=== PATIENT | female | born 1960 | race Caucasian/White ===

== ENCOUNTER → 2020-08-23 11:42 | Outpatient (BNVA) | payer BC, SELFPAY | PROVIDERS: Family Provider Family Medicine; Referring Provider Registered Nurse; Visit Provider Specialist | DX: M25.512 Pain in left shoulder (principal) | CPT/HCPCS: 73030 ==

== ENCOUNTER 2020-09-01 11:43 | Outpatient (CLI) | payer BC, SELFPAY ==
[2020-09-01] MEDS: iohexol 300 mg/mL 50 mL Btl INTRA-ARTI (13:32)
--- NOTE | 2020-09-01 14:00 | CT_ITS ---
WS: [id number] CT LEFT SHOULDER ARTHROGRAM HISTORY: M25.519 - Pain in unspecified shoulder Technique: All CT scans at [facility] use at least one of these dose optimization techniq ues: automated exposure control; mA and/or kV adjustment per patient size (includes targeted exams wh ere dose is matched to clinical indication); or iterative reconstruction. DLP: 768.62 mGycm COMPARISON: None available. CT performed post LEFT shoulder joint injection. There is good distention of the shoulder joint with contrast. There is no extension of the fluid into the subacromial or subdeltoid bursa. Biceps tendon looks to be in normal position. There is good distention of the joint capsule. No contrast extending into the labrum. There is a very small amount of contrast extending along the pectoralis muscle but t his is probably due to the injection site. Mild narrowing of the glenohumeral joint. No loose bodies or fractures are identified. No significant encroachment upon the rotator cuff. CT/CT shoulder LT w con [id number] IMPRESSION: 1. No rotator cuff tear or labral abnormalities are identified. 2. Mild narrowing of the glenohumeral joint.
--- NOTE | 2020-09-01 14:00 | IR_ITS ---
WS: [id number] LEFT SHOULDER ARTHROGRAM UNDER FLUOROSCOPY. PRIOR TO CT EVALUATION. HISTORY: M25.519 - Pain in unspecified shoulder COMPARISON: 08/23/2020 radiographs. FLUOROSCOPY TIME: 0.9 minutes. Procedure, risks and complications were explained to the patient. Consent has been obtained. Under fluoroscopic guidance the skin is marked over the medial superior third of the humeral head, cl eansed with ChloraPrep and anesthetized with lidocaine. 22-gauge spinal needle is inserted to the cor janelle of the humeral head. Test injection with Omnipaque reveals the needle is appropriately positioned in the joint. Omnipaque 300 is injected under fluoroscopic guidance. Patient tolerated the joint dis tention well. No complications. IR/IR arthrogram shoulderLT [id number] IMPRESSION: Uncomplicated LEFT shoulder joint injection prior to CT evaluation.
== END 2020-09-01 11:44 | disposition home or self-care (01) ==
LOC: RADWPI 11:48
PROVIDERS: PCP Family Medicine; Visit Provider Specialist
DX: M25.512 Pain in left shoulder (principal)
CPT/HCPCS: 23350; 73201; 77002; Q9967

== ENCOUNTER → 2021-08-24 14:52 | Outpatient (BNVA) | payer BC, SELFPAY | PROVIDERS: PCP Family Medicine; Visit Provider Nurse Practitioner Family | DX: M25.561 Pain in right knee (principal); M25.461 Effusion, right knee | CPT/HCPCS: 73562 ==

== ENCOUNTER → 2022-02-28 16:13 | Outpatient (BNVA) | payer BC, SELFPAY | PROVIDERS: PCP Family Medicine; Visit Provider Nurse Practitioner Family | DX: N76.4 Abscess of vulva (principal) | CPT/HCPCS: 87070; 87077; 87184 ==

== ENCOUNTER 2022-11-29 22:43 | Observation (INO) | payer MEDICAID, SELFPAY ==
[2022-11-29 22:47] VITALS: BP 146/69; PULSE 64; RESP 18; TEMP 36.6; O2SAT 98
--- NOTE | 2022-11-29 23:07 | XRR_ITS ---
PROCEDURE INFORMATION: Exam: XR Chest Exam date and time: 11/29/2022 11:15 PM Age: 62 years old Clinical indication: Pain; Chest pressure; Additional info: Cp TECHNIQUE: Imaging protocol: Radiologic exam of the chest. Views: 1 view. COMPARISON: CT shoulder LT w con [id number] 09/01/2020 1:30 PM FINDINGS: Lungs: Moderate lung expansion. Lungs are clear. Pleural spaces: No pleural effusion. No pneumothorax. Heart/Mediastinum: Normal cardiomediastinal silhouette. Bones/joints: No acute osseous abnormality. Intraperitoneal space: Postcholecystectomy surgical clips in the right upper abdominal quadrant. XR/XR chest 1V portable [id number] IMPRESSION: No acute findings.
[2022-11-30] VITALS (13 sets, daily range): BP systolic 114–159; BP diastolic 54–89; PULSE 52–70; RESP 14–18; TEMP 36.6–36.7; O2SAT 94–99
--- NOTE | 2022-11-30 00:57 | W.ED.CHESTPA ---
HPI - Chest Pain General: Chief Complaint: Chest Pain Stated Complaint: cp Time Seen by Provider: 11/30/22 00:57 History of Present Illness: Ms. Goyal is a 62-year-old lady presenting due to chest and shoulder discomfort. Onset of symptoms at approximately 7 PM this evening at rest. Describes left shoulder pain with pain radiating to the chest and mild shortness of breath. Intensity symptoms moderate to severe. Denies frequent similar episodes in the past. No other specific changes in health, exacerbating, or alleviating factors identified. Onset (ago): hour(s) Prior episodes: No Onset: during rest Pain location: left chest Pain radiation: left shoulder and left scapula Review of Systems General: Reports: 10 or more systems reviewed and unremarkable except in HPI and below PFSH ED PFSH: Medical History Gall bladder disease Surgical History H/O hysterectomy with oophorectomy History of Family History Mother Psychiatric illness Father Stroke Social History Smoking and tobacco status: former smoker Second hand smoke exposure: No Smoking risk assessment/counseling performed?: No Alcohol intake: never Desire information about alcohol rehabilitation?: No Counseling given: No Substance/Drug Use: never Desire information about substance/drug rehabilitation?: No Counseling given: No Adopted: No Caregiver/support person: No Lives independently: Yes Household members: significant other Housing: House Marital status: / Number of children: 2 Highest education level completed: 11th Grade service: No Current occupational status: employed Physical Exam Const: COMMON NORMALS: alert GENERAL APPEARANCE: cooperative and well developed HENMT: COMMON NORMALS: normocephalic and atraumatic HEAD & SCALP: normocephalic and atraumatic Eye: COMMON NORMALS: conjunctivae normal CONJUNCTIVA: Yes conjunctivae normal SCLERA: sclerae normal Neck/C-Spine: COMMON NORMALS: supple GENERAL: Yes trachea midline Resp: COMMON NORMALS: normal respiratory effort and clear to auscultation bilaterally EFFORT & INSPECTION: Yes able to speak in complete sentences AUSCULTATION: clear to auscultation bilaterally Cardio: COMMON NORMALS: regular rate and regular rhythm RATE: regular rate RHYTHM: regular rhythm GI: COMMON NORMALS: Soft to palpation PALPATION: Yes Soft to palpation and No Tenderness to palpation present (GI) Extremity: GENERAL: Yes normal exam except as noted and No edema Neuro: COMMON NORMALS: moves all extremities SENSORIUM/ORIENTATION: Yes alert and No Orientation impaired Psych: COMMON NORMALS: mental status grossly normal and Normal thought process present THOUGHT PROCESS: Normal thought process present Course Vital Signs: Vital signs: Vital Signs Temperature 97.8 F 12/01/22 03:44 Pulse Rate 52 L 12/01/22 11:36 Respiratory Rate 18 12/01/22 11:36 Blood Pressure 108/70 12/01/22 11:36 Pulse Oximetry 98 12/01/22 11:36 Oxygen Delivery Me thod Room Air 12/01/22 07:15 MDM - Chest Pain Medical Decision Making 62-year-old lady presenting to the ER for chest pain. Fairly typical and characteristic. Not reproducible with palpation on physical exam. EKG demonstrates sinus bradycardia with nonspecific ST segment abnormalities. Normal axis and intervals, no STEMI. Labs with unremarkable hematologic and metabolic panel. Negative range delta troponin. Chest x-ray with no lobar consolidation or pneumothorax. ED course patient treated with aspirin, analgesia. The patient is not low risk by heart score and etiology of symptoms is quite concerning for cardiac. Discussed disposition options and we will proceed with in-hospital testing. The results of ED evaluation were discussed with the patient including plan for admission due to requirement for level of care not available if discharged to prevent significant worsening/deterioration. Patient agreeable with plan. Discussed with hospitalist service who was agreeable to admit patient. Medical Records I reviewed the patient's medical records. Lab Data I reviewed the patient's lab results. 12/01/22 10:02 12/01/22 10:02 Radiology Impressions Chest X-Ray 11/29/22 23:07 IMPRESSION: No acute findings. Laboratory Results WBC 9.0 10^3/uL (4.0-10.0) 11/30/22 01:15 RBC 4.43 10^6/uL (4.1-5.3) 11/30/22 01:15 Hgb 13.4 g/dL (11.5-15.3) 11/30/22 01:15 Hct 40.7 % (37.0-47.0) 11/30/22 01:15 MCV 91.9 fl (81-99) 11/30/22 01:15 MCH 30.2 pg (28.0-34.0) 11/30/22 01:15 MCHC 32.9 g/dL (30.0-36.0) 11/30/22 01:15 RDW 13.3 % (12.1-15.1) 11/30/22 01:15 Plt Count 370 10^3/cmm (130-400) 11/30/22 01:15 MPV 9.4 fL (7.4-10.4) 11/30/22 01:15 Neut % (Auto) 60.8 % 11/30/22 01:15 Lymph % (Auto) 24.9 % 11/30/22 01:15 [place] % (Auto) 6.1 % 11/30/22 01:15 Eos % (Auto) 7.2 % 11/30/22 01:15 Baso % (Auto) 0.8 % 11/30/22 01:15 Neut # (Auto) 5.47 10^3/uL (1.8-7.7) 11/30/22 01:15 Lymph # (Auto) 2.2 10^3/uL (0.8-4.8) 11/30/22 01:15 [place] # (Auto) 0.6 10^3/uL (0.2-0.9) 11/30/22 01:15 Eos # (Auto) 0.7 10^3/uL (0.0-0.8) 11/30/22 01:15 Baso # (Auto) 0.1 10^3/uL (0.0-0.1) 11/30/22 01:15 Nucleated RBC % (auto) 0 % 11/30/22 01:15 Nucleated RBCs # 0.0 /100WBC 11/30/22 01:15 Sodium 139 mmol/L (136-145) 11/30/22 01:15 Potassium 3.8 mmol/L (3.5-5.1) 11/30/22 01:15 Chloride 101 mmol/L (98-107) 11/30/22 01:15 Carbon Dioxide 25 mmol/L (22-29) 11/30/22 01:15 Anion Gap 16.8 (5-19) 11/30/22 01:15 BUN 10 mg/dL (8-23) 11/30/22 01:15 Creatinine 0.6 mg/dL (0.5-0.9) 11/30/22 01:15 GFR Calculation 101.6 mL/min (90-130) 11/30/22 01:15 Glucose 97 mg/dL (65-115) 11/30/22 01:15 Estimat Average Glucose 88 11/30/22 01:15 Hemoglobin A1c 4.7 % (4.0-6.0) 11/30/22 01:15 Calculated Osmolality 287 mOsm/kg (285-295) 11/30/22 01:15 Calcium 9.1 mg/dL (8.5-10.5) 11/30/22 01:15 Total Bilirubin 0.5 mg/dL (0.15-1.2) 11/30/22 01:15 AST 20 U/L (0-32) 11/30/22 01:15 ALT 14 U/L (0-33) 11/30/22 01:15 Alkaline Phosphatase 75 U/L (35-105) 11/30/22 01:15 Troponin T Baseline 6 ng/L (0-10) 11/30/22 01:15 Troponin T 120 Minute 6.00 ng/L (0-10) 11/30/22 03:04 Delta Troponin T 0 ABS# (0-10) 11/30/22 03:04 NT-Pro-B Natriuret Pep 95 pg/mL (0-125) 11/30/22 01:15 Total Protein 8.2 g/dL (6.6-8.7) 11/30/22 01:15 Albumin 4.5 g/dL (3.5-5.2) 11/30/22 01:15 Globulin 3.7 g/dL (1.3-4.6) 11/30/22 01:15 Triglycerides 134 mg/dL (0-150) 11/30/22 03:04 Cholesterol 177 mg/dL (0-200) 11/30/22 03:04 LDL Cholesterol, Calc 98 mg/dL (50-129) 11/30/22 03:04 HDL Cholesterol 52 mg/dL (60-100) L 11/30/22 03:04 LDL/HDL Ratio 1.88 RATIO (0.00-3.22) 11/30/22 03:04 Cholesterol/HDL Ratio 3.40 mg/dL (0.0-4.40) 11/30/22 03:04 TSH 1.45 uIU/mL (0.27-4.20) 11/30/22 03:04 Discharge Plan Discharge Patient Disposition: Placed in Observation Admit Provider: Ese Pelletier Clinical Impression: Chest pain Coding Level of Care Code ED Material Planner for Stacey Bundy
--- NOTE | 2022-11-30 01:17 | ECG_ITS ---
[facility] Test Date: 2022-11-30 Pat Name: Columba Goyal Department: Room: Gender: Female Pedodontist: : 1960 Requested By: Dante Olguin Order Number: [id number] Casillas MD: Kirill An M.D. Measurements Intervals Webster Rate: 53 P: 25 WY: 181 QRS: 13 QRSD: 92 T: 24 QT: 442 QTc: 418 Interpretive Statements SINUS BRADYCARDIA No previous ECG available for comparison Electronically Signed On 11-30-2022 12:22:28 CDT by Kirill An M.D. [id number]
[2022-11-30 01:19] LABS: Basophils # 0.1 10^3/uL (0.0-0.1); Basophils % 0.8 %; Eosinophils # 0.7 10^3/uL (0.0-0.8); Eosinophils % 7.2 %; Hematocrit 40.7 % (37.0-47.0); Hemoglobin 13.4 g/dL (11.5-15.3); Lymphocytes # 2.2 10^3/uL (0.8-4.8); Lymphocytes % 24.9 %; Mean Corpuscular HGB Conc 32.9 g/dL (30.0-36.0); Mean Corpuscular Hemoglobin 30.2 pg (28.0-34.0); Mean Corpuscular Volume 91.9 fl (81-99); Mean Platelet Volume 9.4 fL (7.4-10.4); Monocytes # 0.6 10^3/uL (0.2-0.9); Monocytes % 6.1 %; Neutrophils # 5.47 10^3/uL (1.8-7.7); Neutrophils % 60.8 %; Nucleated Red Blood Cells % 0 %; Platelet Count 370 10^3/cmm (130-400); Red Blood Count 4.43 10^6/uL (4.1-5.3); Red Cell Distribution Width 13.3 % (12.1-15.1)
[2022-11-30 01:39] LABS: Troponin(5th) Baseline 6 ng/L (0-10)
[2022-11-30 01:49] LABS: Alanine Aminotransferase 14 U/L (0-33); Albumin Level 4.5 g/dL (3.5-5.2); Alkaline Phosphatase 75 U/L (35-105); Aspartate Amino Transferase 20 U/L (0-32); Blood Urea Nitrogen 10 mg/dL (8-23); Calcium 9.1 mg/dL (8.5-10.5); Carbon Dioxide 25 mmol/L (22-29); Chloride 101 mmol/L (98-107); Globulin 3.7 g/dL (1.3-4.6); Glomerular Filtration Rate 101.6 mL/min (90-130); Glucose 97 mg/dL (65-115); NT Pro B Type Natriuretic Pept 95 pg/mL (0-125); Osmolality Calculated 287 mOsm/kg (285-295); Sodium 139 mmol/L (136-145); Total Bilirubin 0.5 mg/dL (0.15-1.2); Total Protein 8.2 g/dL (6.6-8.7)
[2022-11-30 01:56] LABS: Anion Gap 16.8 (5-19); Potassium 3.8 mmol/L (3.5-5.1)
[2022-11-30] MEDS: ketorolac 30 mg/mL INJ 15 MG IVP (02:02)
[2022-11-30] MEDS: lidocaine 2% viscous 15 ML, aluminum-mag hydrox-simethicon 30 ML, sucralfate oral liq 1 GM PO (02:02)
[2022-11-30] MEDS: aspirin 81 mg Chew Tablet 324 MG PO (02:03)
[2022-11-30] MEDS: morphine 4 mg/mL SDV 1 mL IVP (03:47)
[2022-11-30 03:59] LABS: Troponin 5 2HR Delta 0 ABS# (0-10)
--- NOTE | 2022-11-30 04:26 | P.HP_ITS ---
Providers/Chief Complaint Primary Care Provider: Leanne Gray DO Chief Complaint: cp History of Present Illness Columba Goyal is a 62 year old female with history of atrial fibrillation status post ablation years ago and no other significant past medical history presented to the hospital today with complaint of chest pain that started suddenly while she was sitting and watching TV. She says she also felt short of breath. The pain radiated to her back and her shoulder blades. It lasted for few hours until she got to the ED and was given morphine. She had a stress test done before her atrial fibrillation ablation years ago but does not remember the results of it. There is no history of heart disease in the family. She is a former smoker smoked 30 years ago and then quit. She drinks alcohol occasionally. Denies any other medical problems. At this point is chest pain- free. She says she chronically has nausea. Denies feeling diaphoretic, having nausea today, abdominal pain or any other symptoms. ED course: On arrival blood pressure 146/69, respiratory 18, pulse 64, temperature 97.8, saturating 98% on room air. Chest x-ray showed no acute findings. Troponins negative x2. WBC 9.0, hemoglobin 13.4, platelets 370, sodium 139, potassium 3.8, creatinine 0.6 BNP 95. Patient was given morphine, ketorolac, aspirin in the ER. Medications/Allergies Home Medications Medication Instructions Recorded Confirmed Last Taken Type estradiol 1 mg tablet (Estrace) 1 mg PO DAILY 08/23/20 04/05/22 Unknown History ondansetron 8 mg disintegrating 8 mg PO Q12H PRN nausea and 04/05/22 04/05/22 Unknown Rx tablet vomiting #21 tabs Allergies Allergy/AdvReac Type Severity Reaction Status Date / Time No Known Allergies Allergy Verified 11/29/22 22:52 PFSH Acute PFSH: Medical History Gall bladder disease Surgical History H/O hysterectomy with oophorectomy History of Family History Mother Psychiatric illness Father Stroke Social History Smoking and tobacco status: former smoker Second hand smoke exposure: No Smoking risk assessment/counseling performed?: No Alcohol intake: never Desire information about alcohol rehabilitation?: No Counseling given: No Substance/Drug Use: never Desire information about substance/drug rehabilitation?: No Counseling given: No Adopted: No Caregiver/support person: No Lives independently: Yes Household members: significant other Housing: House Marital status: / Number of children: 2 Highest education level completed: 11th Grade service: No Current occupational status: employed Vitals/I&O/Wt Last Vital Signs Temp 97.8 F 11/29/22 22:47 Pulse 61 11/30/22 04:19 Resp 18 11/30/22 03:47 BP 159/84 11/30/22 04:19 Pulse Ox 94 11/30/22 04:19 O2 Del Method Room Air 11/30/22 04:19 Weight last 48 hrs Weight 55.338 kg Physical Exam 2 Narrative: General: Alert oriented x3, patient seen sitting up in bed no acute distress. HEENT: Normocephalic, atraumatic, EOMI, breathing comfortably on room air. Cardio: Regular rate rhythm, normal S1-S2, no murmurs Respiratory: Good bilateral air entry, no wheezes no rhonchi appreciated GI: Abdomen soft, nontender, nondistended, bowel sounds + Behavior: Appropriate and cooperative Extremities: Pulses 2+, no edema, no cyanosis Data 11/30/22 01:15 11/30/22 01:15 A&P Assessment and plan (1) Chest pain: Plan #Atypical chest pain #History of atrial fibrillation status post ablation ? Check TSH, lipid profile, hemoglobin A1c ? Check echocardiogram ? Plan for stress test in a.m. ? N.p.o. - Normal saline 75 cc/h -First 2 troponins negative. Await 6-hour troponin ? Serial EKGs. -Patient states she cannot run on a treadmill and would prefer a chemical stress test. ? Zofran for nausea. Full code SCDs, heparin SQ twice daily Attestations Medical Necessity Statement*: Observation admission for chest pain. 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 Telehealth technology used during the visit includes video and audio. This patient encounter is appropriate and reasonable under the circumstances given the dominick ent?s particular presentation at this time. The patient has been advised of the potential risks and limitations of this mode of treatment (including but not limited to the absence of in-person examination at this time) and has agreed to be treated by an off-site physician for this visit. If deemed clinically necessary from this telehealth visit, or if condition or consent for telehealth visit changes, an in-person visit will be arranged. For this encounter, total time for the origination of telehealth care on this date is as shown. Diagnoses Chest pain R07.9
--- NOTE | 2022-11-30 04:28 | USCV_ITS ---
Columba Goyal Age: 62 Gender: F : 1960 Exam Date: 11/30/2022 09:08 Ordering Phys: Ese Pelletier MD Technologist: David Lama Exam Location: [facility] Indication: chest pain BP: / HR: Rhythm: Sinus Technical Quality: Adequate MEASUREMENTS (Male / Female) Normal Values FINDINGS Left Ventricle Left ventricle is normal in size. LV systolic function is normal with EF 55 to 60%. No regional wall motion abnormalities seen. Right Ventricle Normal in size and function Right Atrium Normal in size Left Atrium Normal in size Mitral Valve Structurally normal mitral valve. Trace mitral regurgitation. Aortic Valve Structurally normal aortic valve. Doppler exam not performed. Tricuspid Valve Grossly normal. Doppler exam not performed. Pulmonic Valve Not well visualized Pericardium Normal Aorta Normal in size IVC Appears to be normal CONCLUSIONS LV systolic function is normal with EF 55 to 60%. No Doppler exam performed on the mitral, tricuspid and aortic valves. Trace mitral regurgitation No comparison studies are available Kirill nA MD (Electronically Signed) Final Date: 30 November 2022 12:55 S
--- NOTE | 2022-11-30 04:30 | ECG_ITS ---
[facility] Test Date: 2022-11-30 Pat Name: Columba Goyal Department: Room: 259 Gender: Female Row Boss: Kayaluis Hoover : 1960 Requested By: Ese Pelletier Order Number: [id number] Vinny MD: Kirill An M.D. Interpretive Statements NAME OF STUDY: LEXISCAN SESTAMIBI STRESS TEST INDICATION: [Chest Pain, ] Procedure: At the baseline, the blood pressure was 137/75 mmHg with a heart rate of 58 bpm. The electrocardiogram showed sinus bradycardia, normal axis with normal ST and T's. The Lexiscan was infused over a period of 20 seconds. A total of 0.4 mg of Lexiscan was infused. The stress phase was continued for a total of 5 minutes. Heart rate was at the end of stress phase was 74 bpm and a blood pressure of 120/63 mmHg. The EKG at the peak infusion revealed normal sinus rhythm with no significant ST-T wave changes. Sestamibi was injected 20 seconds after the Lexiscan infusion. Blood pressure at the end of recovery phase was 114/54 mmHg with a heart rate of 70 bpm. Conclusion: 1. Normal EKG response to Lexiscan infusion 2. No Lexiscan induced chest pain or cardiac arrhythmia. 3. Normal blood pressure and heart rate response. 4. Sestamibi/sestamibi perfusion scan pending; see separate report. Electronically Signed On 12-02-2022 11:11:38 CDT by Kirill An M.D. [id number]
[2022-11-30 05:01] LABS: Cholesterol 177 mg/dL (0-200); HDL Cholesterol 52 mg/dL (60-100); LDL Cholesterol Calculated 98 mg/dL (50-129); LDL HDL Ratio 1.88 RATIO (0.00-3.22); Thyroid Stimulating Hormone 1.45 uIU/mL (0.27-4.20); Triglycerides 134 mg/dL (0-150)
[2022-11-30 05:04] LABS: Estmated Average Glucose 88; Hemoglobin A1C 4.7 % (4.0-6.0)
--- NOTE | 2022-11-30 05:16 | PC.NURSE ---
Report called to RYAN Zheng on Med-Surg. All questions and concerns addressed at time of report.
--- NOTE | 2022-11-30 05:35 | NMCV_ITS ---
NM jillian perf SPECT r/s* [id number] Columba Goyal Age: 62 Gender: F : 1960 Exam Date: 11/30/2022 05:35 Ordering Phys: Ese Pelletier MD Technologist: VALENTINA Keane Exam Location: [facility] [place] Indications: Chest Pain STRESS TEST [facility] IMAGE PROTOCOL Rest/Stress 1 Lexiscan Day Radiopharmaceutical Dose (mCi) Administration Site Administered by Rest: Tc-99m 10.8 IV VALENTINA Rosario Sestamibi Stress:Tc-99m 32.8 IV VALENTINA Rosario Sestamibi Rest: 30-Nov-2022 60 Discovery 630 Stress: 30-Nov-2022 30 Discovery 630 0.4mg Lexiscan. Images obtained in supine and prone position. SPECT RESULTS Technical Quality: Excellent Raw Data Analysis: Normal, Breast attenuation Image Corrections: No attenuation or motion correction applied Summed Stress Score: 0 Summed Rest Score: 0 Summed Difference Score: 0 PERFUSION FINDINGS Uniform myocardial tracer uptake. No significant perfusion abnormalities FUNCTIONAL RESULTS (calculated via Gated SPECT) Stress Image LV EF (%): 77 Stress EDV (mL):75 TID: 1 Stress ESV (mL):17 FUNCTIONAL FINDINGS: Segmental wall motion analysis revealing no gross wall motion abnormalities IMPRESSIONS 1. Myocardial perfusion imaging revealing uniform myocardial tracer uptake with no significant perfusion normalities 2. Normal LV ejection fraction of 77%. 3. LV wall motion analysis revealing no gross wall motion abnormalities. 4. Normal LV volume Low probability for coronary ischemia, based on the above findings Dr Shaw Mooney MD FACC (Electronically Signed) Final Date: 30 November 2022 13:47 S
[2022-11-30] MEDS: sodium chloride 0.9% 1,000 ML 75 ML IV (05:38)
[2022-11-30] MEDS: heparin 5,000 unit/mL INJ 1 mL 5000 UNIT SUBCUT (05:38)
[2022-11-30] MEDS: regadenoson 0.4 Mg/5 ml Syringe IVP (07:53)
[2022-11-30] MEDS: ondansetron 2 mg/ML SDV 2 mL 4 MG IVP (08:07)
[2022-11-30 10:18] LABS: D Dimer 0.44 ug/mIFEU (0-0.59)
[2022-11-30 10:46] LABS: Troponin 5 6HR Delta 0 ng/L (0-12)
--- NOTE | 2022-11-30 14:42 | PM.CONSULT ---
Providers/Reason For Consult Consulting Physician/Specialty*: Kirill An MD/ Cardiology Reason for Consult*: Chest pain/worsening angina Requesting Physician: Dr Mcgarry Attending Physician: Alok Mcgarry MD Primary Care Provider: Leanne Gray DO History of Present Illness History of Present Illness Columba Goyal is a 62 year old female with remote history of afib ablation presented to hospital yesterday with few hours of chest discomfort. It is severe and substernal. Radiating to the jaw. Her echo shows normal LV systolic function. Stress test does not show significant ischemia. Troponins have not trended up significantly. EKG shows sinus bradycardia. Review of Systems Const: Reports: fever(s); Denies: chills, body aches or change in appetite Eyes: Denies: change in vision, eye discharge or eye redness ENMT: Denies: throat pain, hoarseness, ear or mastoid pain, ear discharge, nasal discharge or nasal congestion Card: Reports: chest pain; Denies: palpitations, irregular heart rhythm or edema Resp: Denies: dyspnea, productive cough, non-productive cough or wheezing : Denies: difficulty voiding, dysuria, urinary frequency, urinary urgency, urinary hesitancy or hematuria Musc: Denies: joint swelling, joint redness, joint warmth or joint stiffness Skin/Breast: Denies: rash Neuro: Denies: headache(s) Augustus/Lymph: Denies: enlarged lymph nodes or tender lymph nodes Medications/Allergies Home Medications Medication Instructions Recorded Confirmed Last Taken Type estradiol 1 mg tablet (Estrace) 1 mg PO DAILY 08/23/20 11/30/22 1 Day Ago History ~11/29/22 ondansetron 8 mg disintegrating 8 mg PO Q12H PRN nausea and 04/05/22 11/30/22 Unknown Rx tablet vomiting #21 tabs Allergies Allergy/AdvReac Type Severity Reaction Status Date / Time No Known Allergies Allergy Verified 11/29/22 22:52 Current Medications Generic Name Dose Route Start Last Admin Trade Name Freq PRN Reason Stop Dose Admin Heparin Sodium (Porcine) 5,000 unit 11/30/22 04:30 11/30/22 05:38 Heparin 5,000 Unit/Ml Inj 1 Ml SUBCUT 5,000 unit Q12H NITHYA Administration Ondansetron HCl 4 mg 11/30/22 06:51 11/30/22 08:07 Ondansetron 2 Mg/Ml Sdv 2 Ml IVP 4 mg Q2M PRN Administration NAUSEA PFSH Acute PFSH: Medical History Gall bladder disease Surgical History H/O hysterectomy with oophorectomy History of Family History Mother Psychiatric illness Father Stroke Social History Smoking and tobacco status: former smoker Second hand smoke exposure: No Smoking risk assessment/counseling performed?: No Alcohol intake: never Desire information about alcohol rehabilitation?: No Counseling given: No Substance/Drug Use: never Desire information about substance/drug rehabilitation?: No Counseling given: No Adopted: No Caregiver/support person: No Lives independently: Yes Household members: significant other Housing: House Marital status: / Number of children: 2 Highest education level completed: 11th Grade service: No Current occupational status: employed Vitals/I&O/Wt Last Vital Signs Temp 98.0 F 11/30/22 12:00 Pulse 52 L 11/30/22 12:00 Resp 16 11/30/22 12:00 BP 114/54 11/30/22 06:52 Pulse Ox 99 11/30/22 12:00 O2 Del Method Room Air 11/30/22 12:00 Weight last 48 hrs Weight 122 lb Physical Exam Narrative: GENERAL: Patient is alert, awake and oriented x3. [] NECK: No jugular vein distension. [] HEENT: No cyanosis. No icterus. No pallor. [] HEART: Regular S1 and S2. No murmur, rub or gallop. [] LUNGS: Clear to auscultate bilaterally. [] CENTRAL NERVOUS SYSTEM: Grossly nonfocal. [] EXTREMITIES: Lower extremities with 1+ edema bilaterally. Pulses palpable in the lower extremities, both dorsalis pedis and posterior tibial. [] Data 11/30/22 01:15 11/30/22 01:15 A&P Assessment and plan (1) Chest pain: Plan Patient has typical chest pain symptoms that are worsening since yesterday. Although stress test is not showing significant area of abnormality, she is complaining of on and off severe chest pain with typical features. All options discussed with her. She wants to proceed with coronary angiogram with possible percutaneous coronary intervention. Risks and benefits of the procedure have been discussed NPO past midnight Thank you for involving us with care of this patient. We will continue to follow. Please call with questions Consult Attestations Medical Necessity Statement: Care expected to cross 2 midnights. Coding Level of Care Code Acute Code for Stacey Fwramsey Diagnoses Chest pain R07.9
--- NOTE | 2022-11-30 15:01 | P.PN_ITS ---
Subjective Subjective: Patient was seen this morning, her family members at bedside, she continues to complain of episodes of dull achy anterior chest pain, nonradiating, also intermittent shortness of breath, no fevers, no chills, no cough, she denies a cardiovascular history, she is on estradiol for postmenopausal symptoms, no history of DVTs no history of PEs, no hemoptysis, recent surgery, she is on room air, Vitals/I&O/Wt Last Vital Signs Temp 98.0 F 11/30/22 12:00 Pulse 52 L 11/30/22 12:00 Resp 16 11/30/22 12:00 BP 114/54 11/30/22 06:52 Pulse Ox 99 11/30/22 12:00 O2 Del Method Room Air 11/30/22 12:00 Weight last 48 hrs Weight 55.338 kg Physical Exam Const: COMMON NORMALS: no acute distress and patient oriented x3 Resp: COMMON NORMALS: normal respiratory effort, No retractions, No use of accessory muscles and clear to auscultation bilaterally AUSCULTATION: clear to auscultation bilaterally Cardio: COMMON NORMALS: regular rate, regular rhythm, S1 normal heart sound present and S2 normal heart sound present RATE: regular rate RHYTHM: regular rhythm HEART SOUNDS: S1 normal heart sound present and S2 normal heart sound present GI: COMMON NORMALS: Normal to inspection, nondistended, normoactive bowel sounds present and non-tender Extremity: COMMON NORMALS: no pedal edema Neuro: COMMON NORMALS: patient oriented x3 Psych: COMMON NORMALS: mental status grossly normal Data 11/30/22 01:15 11/30/22 01:15 A&P Assessment and plan (1) Chest pain: Plan #Chest pain #History of atrial fibrillation status post ablation ? TSH within normal limits, lipid profile HDL 52, hemoglobin A1c within normal limits ? Echocardiogram 55 to 60% ? Stress test pending ? Cardiac diet - Normal saline 75 cc/h -No significant delta troponin ? Serial EKGs. -Due to persistent chest pain, will speak to cardiology -D-dimer within normal limits ? Zofran for nausea. Full code SCDs, heparin SQ twice daily Spoke to patient, spoke to nursing staff, spoke to cardiology Attestations Medical Necessity Statement*: Patient requires hospitalization for chest pain Diagnoses Chest pain R07.9
[2022-11-30] MEDS: acetaminophen 325 mg Tablet 650 MG PO (19:40)
--- NOTE | 2022-11-30 20:35 | PC.NURSE ---
per previous nurse Haro, per Dr Chapman, pt can have aspirin 325 mg tonight.. since order is one time order, this nurse unable to retime hence new order written for pt to receive this aspirin dose tonight
[2022-11-30] MEDS: aspirin 325 mg Tablet PO (21:34)
[2022-11-30] MEDS: atorvastatin 40 mg Tablet PO (21:34)
[2022-12-01] VITALS (17 sets, daily range): BP systolic 97–118; BP diastolic 53–71; PULSE 49–66; RESP 13–18; TEMP 36.6; O2SAT 97–99
--- NOTE | 2022-12-01 05:17 | XACV_ITS ---
Exam Room: [facility] Ht: 160 cm Wt: 55 kg BSA: 1.57 m2 Gender: Female : 1960 Exam Priority: Routine Procedure(s): Procedure Description: Diagnostic procedure Procedure Description: Left Heart Catheterization Procedure Description: Coronary Angiography Diagnostic Cath Status: Elective Diagnostic Findings * No significant disease noted in the Left Main, Left Anterior Descending, Right, or Circumflex coronary arteries. * Coronary angiography shows right dominance. Conclusions 1. No significant disease noted in the Left Main, Left Anterior Descending, Right, or Circumflex coronary arteries. 2. Chest pain likely secondary to vasospasms. Recommendations * Will start amlodipine 2.5 mg daily for possible coronary vasospasms. * Outpatient cardiology follow up. Interventional RX Recommendation: medical therapy and/or counseling Diagnostic RX Recommendation: medical therapy and/or counseling Anticoagulation: Heparin Pressures Phase:Rest AO : 101 / 70 ( 86 ) @ 7:25:00 AM 119 / 61 ( 86 ) @ 7:29:00 AM 120 / 60 ( 86 ) @ 7:29:00 AM LV : 113 / -12 / 9 @ 7:29:00 AM 116 / -12 / 9 @ 7:29:00 AM Valves Phase:DefaultPhase AV : 0.0 @ 6:37:15 AM 0.0 @ 6:37:15 AM AV Mean Gradient: 0.0 @ 6:37:15 AM 0.0 @ 6:37:15 AM Clinical Evaluation EBL: 5mL-10mL Procedural Details Procedure Consent Obtained. Admit Source: In Patient. Pre-Procedure Time Out. Identified patient by full name and date of as verbalized by the patient/guarantor. Does the consent match the physician's order: Yes. Accurate & Complete Informed Consent: Yes. Inpatient/Outpatient History & Physical on Chart: Yes. If H&P is completed, is and addenduem needed: No; If yes, is the addendum complete: N/A. Visualize and Verify Site with Patient/Guarantor: N/A. Relevant Radiology Images available: Yes. The risks, benefits, and alternatives of sedation and/or procedure were discussed by physician. The patient agrees to continue. Procedure started. [facility] Clinical Fraility Score: 3: Managing Well. Aircraft Refueler Indications: Worsening Angina. Chest Pain Symptom Assessment: Typical Angina Symptoms. Correct patient, site and procedure confirmed by cath team. PERRLA. Strong, equal hand law enforcement instructor bilaterally. Lungs clear x 5 lobes. IV Site on Arrival: 20 gauge in the right anticubital. IV Fluids: 0.9% NaCl at KVO. 400 mL infused prior to cytology laboratory manager. Pre Procedural Pulses: bilateral radial was 3+. Pre Procedural Pulses: bilateral dorsalis pedis was 2+. Oxygen started at 2liters/min via nasal canula. right groin was prepped with chloroprep then draped in the usual sterile fashion. right radial was prepped with chloroprep then draped in the usual sterile fashion. Baseline sample Acquired. HR: 56 BPM. Physician notified. Physician arrived. Physician scrubbed in. Immediate Pre-Procedure Time Out. Correct Patient: Yes; Correct Procedure: Yes; Correct Site: Yes; Correct Patient Position: Yes; Correct Supplies: Yes; Dried Flammable Prep: Yes; Blood Products Available: N/A;. Lidocaine 1% infiltrated to the right radial. Arterial access obtained. A 5 telugu TIG catheter in over wire. Multiple views taken of left coronary artery. Catheter redirected to the RCA. Multiple views taken of right coronary artery. EDP Sample taken: LV 113/-13,9; HR: 57 BPM; SpO2: 97%. Pullback taken: LV 116/-13,9; AO 119/61(86); Mean: 0mmHg, Peak to Peak: 0mmHg, SEP: 5sec/min; HR: 57 BPM; SpO2: 99%. Catheter out. Wire out. Post Procedure: Pulses reassessed and unchanged. PERRLA. Strong, equal hand law enforcement instructor bilaterally. No VTE prophylaxis required. A TR Band was successful obtaining hemostatsis at the Right Radial artery insertion site. Post-op diagnosis: non-obstructive CAD. Complications: none. Medication's Wasted: Nitro = 49.8 mg. Medication's Wasted: Heparin = 1000 units. Medication's Wasted: Other = versed 1 mg. Medication's Wasted: Other = fentanyl 75 mcg. Total IV fluids: 33 mL. Estimated blood loss: 5mL-10mL. Responsiveness - Normal response to verbal stimuli; alert and oriented, PERRLA. Airway - Unaffected, no intervention required; spontaneous ventilation. Circulation: W/N/L, pulses unchanged. Nausea/Vomiting: No. Procedure completed. Patient transferred by wheelchair to CPRU. Vital chart was stopped. Access Site Site: Right Radial artery Sheath Size: 6 Fr Hemostasis Method: TR Band Hemostasis Success: Successful Procedure Medications Start: 6:19 AM Stop: 6:19 AM Medication: Versed 1 mg and Fentanyl 25 mcg Amount: 1 Route: I.V. Start: 6:23 AM Stop: 6:23 AM Medication: Nitrogylcerin Amount: 200 mcg Route: I.A. Start: 6:24 AM Stop: 6:24 AM Medication: Heparin Amount: 5000 units Route: I.V. I, the attending physician, have reviewed and verified all procedure medications. Yes, all medications given per verbal order History/Risk Factors Hypertension: No Dyslipidemia: No Peripheral Arterial Disease (PAD): No Myocardial Infarction (TX): No Obesity: No Tobacco Use: Former Prior Interventions PCI: No CABG: No Valve Surgery: No Report Signatures Finalized by Kirill An MD on 12/01/2022 03:49 PM
[2022-12-01] MEDS: diphenhydrAMINE 50 mg Capsule PO (05:18)
--- NOTE | 2022-12-01 06:17 | W.PM.OPSUD ---
Surgery/Procedure H&P Update DATE OF PROCEDURE: December 01, 2022 DATE H&P PERFORMED: 11/30/22 H&P UPDATE INFORMATION: I have reviewed H&P completed within last 30 days, I have examined patient prior to procedure and No changes to prior documentation PREOP DIAGNOSIS: Worsening angina PRIMARY INDICATION FOR PROCEDURE: Worsening angina PLANNED PROCEDURE: Left heart cath with possible percutaneous coronary intervention PATIENT REASSESSED PRIOR TO SEDATION, WITH NO CHANGE NOTED: Yes PHYSICAL EXAM: alert, oriented x 3, clear to auscultation bilaterally and regular rate & rhythm AIRWAY EVAL/ANESTHESIA PLAN: normal airway, ASA III, Local Anesthesia, Risks, benefits & alternatives of sedation and/or procedure discussed and Patient agrees to continue as planned ADDITIONAL INFORMATION: Moderate sedation
--- NOTE | 2022-12-01 06:45 | SUR.EXTENDED ---
Received the patient back from the skilled labor s/p diagnostic [facility] via wheelchair. Patient ambulated to the bed without difficultly. Patient is a little drowsy but responds easily to verbal stimuli. A & O x 3. monitoring analyst placed and vital signs obtained. TR band intact to the right wrist with palpable radial pulse. Will transfer to [facility]- when CSU nurse available.
--- NOTE | 2022-12-01 06:59 | P.PN_ITS ---
Subjective Subjective: Patient had coronary angiogram today that did not show significant CAD. No active chest pain today Vitals/I&O/Wt Last Vital Signs Temp 97.8 F 12/01/22 03:44 Pulse 66 12/01/22 05:44 Resp 15 12/01/22 03:44 BP 109/64 12/01/22 03:44 Pulse Ox 98 12/01/22 03:44 O2 Del Method Room Air 12/01/22 03:44 11/30/22 11/30/22 12/01/22 14:59 22:59 06:59 Intake Total 240 / 240 Balance 240 / 240 Weight last 48 hrs Weight 122 lb Physical Exam Narrative: GENERAL: Patient is alert, awake and oriented x3. [] NECK: No jugular vein distension. [] HEENT: No cyanosis. No icterus. No pallor. [] HEART: Regular S1 and S2. No murmur, rub or gallop. [] LUNGS: Clear to auscultate bilaterally. [] CENTRAL NERVOUS SYSTEM: Grossly nonfocal. [] EXTREMITIES: Lower extremities with no Data 11/30/22 01:15 11/30/22 01:15 A&P Assessment and plan (1) Chest pain: Plan Patient's angiogram does not show significant CAD. Medical therapy. Can add low dose amlodipine 2.5mg daily for possible coronary vasospasms Thank you for involving us with care of this patient. Patient is stable to be discharged from cardiology standpoint. Please call with questions Attestations Medical Necessity Statement*: Care expected to cross 2 midnights. Coding Level of Care Code Acute Code for [facility] Diagnoses Chest pain R07.9
--- NOTE | 2022-12-01 07:20 | SUR.EXTENDED ---
Patient transferred to [facility] via wheelchair.
[2022-12-01] MEDS: aspirin 81 mg EC Tablet PO (08:54)
[2022-12-01] MEDS: sodium chloride 0.9% 1,000 ML 50 ML IV (08:55)
--- NOTE | 2022-12-01 10:03 | PC.NURSE ---
Patient arrived from [facility]. TR band intact, no bleeding or oozing. All air has been removed from TR band and patient vital signs are WNL. Nurse will apply dressing and have patient ambulate per physician orders.
[2022-12-01 10:17] LABS: Basophils # 0.1 10^3/uL (0.0-0.1); Basophils % 0.9 %; Eosinophils # 0.5 10^3/uL (0.0-0.8); Eosinophils % 8.1 %; Hematocrit 36.6 % (37.0-47.0); Hemoglobin 11.9 g/dL (11.5-15.3); Lymphocytes # 1.6 10^3/uL (0.8-4.8); Lymphocytes % 24.7 %; Mean Corpuscular HGB Conc 32.5 g/dL (30.0-36.0); Mean Corpuscular Hemoglobin 30.7 pg (28.0-34.0); Mean Corpuscular Volume 94.6 fl (81-99); Mean Platelet Volume 9.5 fL (7.4-10.4); Monocytes # 0.5 10^3/uL (0.2-0.9); Monocytes % 6.9 %; Neutrophils # 3.87 10^3/uL (1.8-7.7); Neutrophils % 59.2 %; Nucleated Red Blood Cells % 0 %; Platelet Count 285 10^3/cmm (130-400); Red Blood Count 3.87 10^6/uL (4.1-5.3); Red Cell Distribution Width 13.2 % (12.1-15.1); White Blood Count 6.5 10^3/uL (4.0-10.0)
[2022-12-01 10:35] LABS: Alanine Aminotransferase 22 U/L (0-33); Albumin Level 3.8 g/dL (3.5-5.2); Alkaline Phosphatase 75 U/L (35-105); Anion Gap 12.8 (5-19); Aspartate Amino Transferase 25 U/L (0-32); Blood Urea Nitrogen 11 mg/dL (8-23); Calcium 8.3 mg/dL (8.5-10.5); Carbon Dioxide 24 mmol/L (22-29); Chloride 106 mmol/L (98-107); Globulin 2.7 g/dL (1.3-4.6); Glomerular Filtration Rate 125.4 mL/min (90-130); Glucose 85 mg/dL (65-115); Osmolality Calculated 287 mOsm/kg (285-295); Potassium 3.8 mmol/L (3.5-5.1); Sodium 139 mmol/L (136-145); Total Bilirubin 0.5 mg/dL (0.15-1.2); Total Protein 6.5 g/dL (6.6-8.7)
--- NOTE | 2022-12-01 11:34 | PM.DCS ---
Discharge Providers Date of Admission: 11/30/22 04:26 Date of Discharge: December 01, 2022 Attending Provider at Admission: Ese Pelletier MD Attending Provider at Discharge: Alok Mcgarry MD Primary Care Provider: Leanne Gray DO Diagnoses at Discharge Discharge Diagnosis (1) Chest pain: Status: Acute Reason for Visit Reason for Visit: cp Hospital Course Hospital Course Columba Goyal is a 62 year old female with history of atrial fibrillation status post ablation years ago and no other significant past medical history presented to the hospital today with complaint of chest pain that started suddenly while she was sitting and watching TV. This is a 62-year-old female who presented to [facility] for chest pain, no significant delta troponin, no acute ST-T wave changes echocardiogram showed an EF of 55 to 60%, cardiac stress test showed low probability of CAD however she continues to have chest pain as inpatient, GI was consulted, underwent coronary angiography which did not show any significant evidence of obstructive CAD. Potentially patient's symptomatology was related to coronary spasm, discharged on low-dose amlodipine 2.5 mg once daily with a close follow-up with cardiology as outpatient, if she were to have any recurrent chest pain to go to emergency room. Physical Exam Const: COMMON NORMALS: no acute distress and patient oriented x3 Resp: COMMON NORMALS: normal respiratory effort, No retractions, No use of accessory muscles and clear to auscultation bilaterally AUSCULTATION: clear to auscultation bilaterally Cardio: COMMON NORMALS: regular rate, regular rhythm, S1 normal heart sound present and S2 normal heart sound present RATE: regular rate RHYTHM: regular rhythm HEART SOUNDS: S1 normal heart sound present and S2 normal heart sound present GI: COMMON NORMALS: Normal to inspection, nondistended, normoactive bowel sounds present and non-tender Extremity: COMMON NORMALS: no pedal edema Neuro: COMMON NORMALS: patient oriented x3 Psych: COMMON NORMALS: mental status grossly normal Discharge Data Studies Completed and Pending Completed Studies During Hospitalization Category Date Time Status Sestamibi Stress Test Request Stat Exams 11/30/22 04:30 Draft XR chest 1V portable [id number] Stat Exams 11/29/22 23:07 Completed NM jillian perf SPECT r/s* [id number] Routine Nuc Med 11/30/22 05:35 Completed US echo complete [CV. echo complete* [id number]] Routine Ultrasound 11/30/22 04:28 Completed Pending at discharge Category Date Time Status NATURAL FOODS CLERK request for service Routine Exams 12/01/22 05:17 Taken Radiology Impressions Chest X-Ray 11/29/22 23:07 IMPRESSION: No acute findings. Laboratory Results WBC 6.5 10^3/uL (4.0-10.0) 12/01/22 10:02 RBC 3.87 10^6/uL (4.1-5.3) L 12/01/22 10:02 Hgb 11.9 g/dL (11.5-15.3) 12/01/22 10:02 Hct 36.6 % (37.0-47.0) L 12/01/22 10:02 MCV 94.6 fl (81-99) 12/01/22 10:02 MCH 30.7 pg (28.0-34.0) 12/01/22 10:02 MCHC 32.5 g/dL (30.0-36.0) 12/01/22 10:02 RDW 13.2 % (12.1-15.1) 12/01/22 10:02 Plt Count 285 10^3/cmm (130-400) 12/01/22 10:02 MPV 9.5 fL (7.4-10.4) 12/01/22 10:02 Neut % (Auto) 59.2 % 12/01/22 10:02 Lymph % (Auto) 24.7 % 12/01/22 10:02 [place] % (Auto) 6.9 % 12/01/22 10:02 Eos % (Auto) 8.1 % 12/01/22 10:02 Baso % (Auto) 0.9 % 12/01/22 10:02 Neut # (Auto) 3.87 10^3/uL (1.8-7.7) 12/01/22 10:02 Lymph # (Auto) 1.6 10^3/uL (0.8-4.8) 12/01/22 10:02 [place] # (Auto) 0.5 10^3/uL (0.2-0.9) 12/01/22 10:02 Eos # (Auto) 0.5 10^3/uL (0.0-0.8) 12/01/22 10:02 Baso # (Auto) 0.1 10^3/uL (0.0-0.1) 12/01/22 10:02 Nucleated RBC % (auto) 0 % 12/01/22 10:02 Nucleated RBCs # 0.0 /100WBC 12/01/22 10:02 D-Dimer 0.44 ug/mIFEU (0-0.59) 11/30/22 09:45 Sodium 139 mmol/L (136-145) 12/01/22 10:02 Potassium 3.8 mmol/L (3.5-5.1) 12/01/22 10:02 Chloride 106 mmol/L (98-107) 12/01/22 10:02 Carbon Dioxide 24 mmol/L (22-29) 12/01/22 10:02 Anion Gap 12.8 (5-19) 12/01/22 10:02 BUN 11 mg/dL (8-23) 12/01/22 10:02 Creatinine 0.5 mg/dL (0.5-0.9) 12/01/22 10:02 GFR Calculation 125.4 mL/min (90-130) 12/01/22 10:02 Glucose 85 mg/dL (65-115) 12/01/22 10:02 Estimat Average Glucose 88 11/30/22 01:15 Hemoglobin A1c 4.7 % (4.0-6.0) 11/30/22 01:15 Calculated Osmolality 287 mOsm/kg (285-295) 12/01/22 10:02 Calcium 8.3 mg/dL (8.5-10.5) L 12/01/22 10:02 Magnesium 2.0 mg/dL (1.7-2.3) 12/01/22 10:02 Total Bilirubin 0.5 mg/dL (0.15-1.2) 12/01/22 10:02 AST 25 U/L (0-32) 12/01/22 10:02 ALT 22 U/L (0-33) 12/01/22 10:02 Alkaline Phosphatase 75 U/L (35-105) 12/01/22 10:02 Troponin T Baseline 6 ng/L (0-10) 11/30/22 01:15 Troponin T 120 Minute 6.00 ng/L (0-10) 11/30/22 03:04 Delta Troponin T 0 ABS# (0-10) 11/30/22 03:04 Troponin T Hi Sens 6Hr 6.00 ng/L (0-10) 11/30/22 09:45 Troponin T Hi Sens 6Hr Delta 0 ng/L (0-12) 11/30/22 09:45 NT-Pro-B Natriuret Pep 95 pg/mL (0-125) 11/30/22 01:15 Total Protein 6.5 g/dL (6.6-8.7) L 12/01/22 10:02 Albumin 3.8 g/dL (3.5-5.2) 12/01/22 10:02 Globulin 2.7 g/dL (1.3-4.6) 12/01/22 10:02 Triglycerides 134 mg/dL (0-150) 11/30/22 03:04 Cholesterol 177 mg/dL (0-200) 11/30/22 03:04 LDL Cholesterol, Calc 98 mg/dL (50-129) 11/30/22 03:04 HDL Cholesterol 52 mg/dL (60-100) L 11/30/22 03:04 LDL/HDL Ratio 1.88 RATIO (0.00-3.22) 11/30/22 03:04 Cholesterol/HDL Ratio 3.40 mg/dL (0.0-4.40) 11/30/22 03:04 TSH 1.45 uIU/mL (0.27-4.20) 11/30/22 03:04 Vitals Last Vital Signs Temp 97.8 F 12/01/22 03:44 Pulse 52 L 12/01/22 10:00 Resp 18 12/01/22 10:00 BP 108/70 12/01/22 10:00 Pulse Ox 98 12/01/22 10:00 O2 Del Method Room Air 12/01/22 07:15 Discharge Plan Discharge Patient Disposition: Home Condition: Stable Prescriptions: New amlodipine [Norvasc] 2.5 mg tablet 2.5 mg PO DAILY 30 Days Qty: 30 0RF Continued estradiol [Estrace] 1 mg tablet 1 mg PO DAILY ondansetron 8 mg tablet,disintegrating 8 mg PO Q12H PRN (Reason: nausea and vomiting) Qty: 21 0RF Discharge Orders: Discharge Order (Routine); Ordered 12/01/22 Ordered By: Alok Malgorzata Referrals: Kirill An M.D [Physician] - (Your Dr. An follow up appointment will be scheduled while you are at your Annabel Hanson appointment. Thank you.) Annabel Hanson FNP [Nurse Practitioner] - 12/13/22 10:00 am Leanne Gray DO [Primary Care Provider] - 12/05/22 10:20 am Patient Instructions: Amlodipine (By mouth) (Hypertenipine-2.5, Norvasc, Norliqva), Coronary Angioplasty (DC), Chest Pain Stoplight, Opioid Safety, Post Angiogram Home Care Instructions, Pain Management Activity Restrictions/Additional Instructions: - If you have any recurrent chest pain please go to emergency room Discharge Attestations Time Spent in Discharge Care*: greater than 30 min Quality Metrics Clinical Quality Measures [ No reported AMI, CVA or VTE this stay] Coding Level of Care Code 17694 Total time (in minutes) for Discharge: 40 Diagnoses Chest pain R07.9
--- NOTE | 2022-12-01 13:05 | PC.NURSE ---
Discharge Note Patient discharged to home via pov accompanied by daughter. Discharge instructions reviewed with patient and/or home furnishings sales representative. Mobile pharmacy medications and/or prescriptions provided. Belongings/home medications returned.
== END 2022-12-01 13:06 | disposition home or self-care (01) ==
LOC: ER 11-30 04:26 → MEDSURG 11-30 04:47 → CSU 12-01 07:42
PROVIDERS: Internal Medicine; Physician Assistant; Admitting Provider Internal Medicine; Emergency Provider Emergency Medicine; PCP Family Medicine; Visit Provider Family Medicine
DX: R07.9 Chest pain, unspecified (principal); Z87.891 Personal history of nicotine dependence; R00.1 Bradycardia, unspecified; Z79.818 Long term (current) use of other agents affecting estrogen receptors and estrogen levels
CPT/HCPCS: 36415; 71045; 78452; 80053; 80061; 83036; 83735; 83880; 84443; 84484; 85025; 85378; 93005; 93017; 93306; 93458; 96361; 96365; 96372; 96374; 96375; 96376; 99152; 99285; A9500; C1769; C1887; C1894; G0378; J1644; J1885; J2250; J2270; J2405; J2785; J3010; J3490; J7030; Q0163; Q9967

== ENCOUNTER → 2022-12-13 10:43 | Outpatient (BNVA) | payer MEDICAID, SELFPAY | PROVIDERS: PCP Family Medicine; Visit Provider Nurse Practitioner Family | DX: I20.1 Angina pectoris with documented spasm (principal) | CPT/HCPCS: 80048 ==

== ENCOUNTER 2024-05-29 06:59 | Outpatient (CLI) | payer MEDICAID, SELFPAY ==
--- NOTE | 2024-05-29 07:15 | MR_ITS ---
WS: [id number] MRI LEFT SHOULDER HISTORY: Left shoulder pain paresthesia left upper extremity COMPARISON: None available. TECHNIQUE: Multiplanar sequences of the shoulder joint are submitted. Mild AC joint arthritis. Downsloping of the acromion with moderate subacromial impingement. No signif icant subacromial or subdeltoid bursal fluid. No os acromion. Biceps tendon in normal position. Normal position of the humeral head at the glenoid. No rotator cuff muscle atrophy or edema. Subacrom ial impingement upon the distal supraspinatus but there is no tear. Rotator cuff muscles are intact. There is mild coracohumeral narrowing and encroachment upon the subscapularis tendon but no tear. Sma ll subchondral cysts in the posterior lateral humeral head. No thickening of the axillary pouch. Quiana cohumeral ligament is normal without edema or thickening. No labral tear. MR/MR shoulder LT wo con* [id number] IMPRESSION: 1. No rotator cuff tendon tear or muscle atrophy. 2. Mild AC joint arthritis. 3. Downsloping of the acromion with moderate subacromial impingement upon the supraspinatus tendon. No edema or tear. 4. Mild narrowing of the coracohumeral interval with mild encroachment upon th e subscapularis tendon but no tear. 5. Coracohumeral ligament is normal.
== END 2024-05-29 07:00 | disposition home or self-care (01) ==
PROVIDERS: PCP Family Medicine; Visit Provider Nurse Practitioner Family
DX: M13.812 Other specified arthritis, left shoulder (principal); R20.2 Paresthesia of skin; R93.89 Abnormal findings on diagnostic imaging of other specified body structures
CPT/HCPCS: 73221

== ENCOUNTER → 2024-06-04 10:11 | Outpatient (BNVA) | payer MEDICAID, SELFPAY | PROVIDERS: PCP Family Medicine | DX: R11.0 Nausea (principal) | CPT/HCPCS: 80053; 85025 ==

== ENCOUNTER → 2024-08-13 13:43 | Outpatient (BNVA) | payer MEDICAID, SELFPAY | PROVIDERS: PCP Family Medicine; Visit Provider Student in an Organized Health Care Education/Training Program | DX: M19.012 Primary osteoarthritis, left shoulder (principal); M54.12 Radiculopathy, cervical region; R20.0 Anesthesia of skin | CPT/HCPCS: 73030 ==

== ENCOUNTER → 2024-08-19 15:17 | Outpatient (BNVA) | payer MEDICAID, SELFPAY | PROVIDERS: PCP Family Medicine; Visit Provider Orthopaedic Surgery | DX: M54.12 Radiculopathy, cervical region (principal) | CPT/HCPCS: 72050 ==

== ENCOUNTER 2024-12-05 13:29 | Outpatient (CLI) | payer MEDICAID, SELFPAY ==
[2024-12-05 15:41] LABS: Alanine Aminotransferase 15 U/L (0-33); Albumin Level 4.9 g/dL (3.5-5.2); Alkaline Phosphatase 76 U/L (35-105); Aspartate Amino Transferase 24 U/L (0-32); Blood Urea Nitrogen 11 mg/dL (8-23); Calcium 9.6 mg/dL (8.5-10.5); Carbon Dioxide 25 mmol/L (22-29); Chloride 102 mmol/L (98-107); Cholesterol 191 mg/dL (0-200); Globulin 3.7 g/dL (1.3-4.6); Glucose 84 mg/dL (65-115); HDL Cholesterol 85 mg/dL (60-100); Osmolality Calculated 289 mOsm/kg (285-295); Sodium 140 mmol/L (136-145); Thyroid Stimulating Hormone 1.33 uIU/mL (0.27-4.20); Total Protein 8.6 g/dL (6.6-8.7); Triglycerides 70 mg/dL (0-150)
[2024-12-05 17:10] LABS: Anion Gap 17.0 (5-19); Potassium 4.0 mmol/L (3.5-5.1)
== END 2024-12-05 13:30 | disposition home or self-care (01) ==
LOC: LAB 13:32
PROVIDERS: PCP Family Medicine; Visit Provider Family Medicine
DX: Z13.6 Encounter for screening for cardiovascular disorders (principal)
CPT/HCPCS: 36415; 80053; 80061; 84443; 85025

== ENCOUNTER 2024-12-08 06:39 | Outpatient (CLI) | payer MEDICAID, SELFPAY ==
--- NOTE | 2024-12-08 07:15 | MR_ITS ---
WS: [id number] MRI CERVICAL SPINE NONCONTRAST HISTORY: Neck Pain COMPARISON: Radiograph 08/19/2024 Technique: Multiplanar, multisequence noncontrast imaging of the cervical spine. Straightening and slight reversal of the normal cervical lordosis centered at C5. No acute fractures. Degenerative disc disease is most significant at C5-6. Signal within the cervical cord is normal. Visualized posterior fossa is unremarkable. Craniocervical junction, C1 and C2 relationship, odontoid process and soft tissues are normal. C2-C3: Mild bilateral facet joint arthropathy. No stenosis. C3-C4: Mild facet joint arthropathy. No stenosis. C4-C5: Mild annular disc bulging with osteophytic ridging and mild facet arthritis. Very minimal LEFT foraminal narrowing. C5-C6: Annular disc bulging with osteophytic ridging and a central disc protrusion. Mild facet arthritis. LEFT foraminal disc osteophyte complex causing moderate to severe stenosis. Mild RIGHT foraminal stenosis and mild central stenosis with effacement of CSF. C6-C7: Normal. C7-T1: Normal. Paraspinal soft tissue are normal. MR/MR cervical spin wo con* [id number] IMPRESSION: 1. C5-6: Osteophytic ridging with a central disc osteophyte protrusion. Larger LEFT foraminal disc osteophyte complex causing moderate to severe foraminal st enosis. Mild central and RIGHT foraminal stenosis. 2. Minimal LEFT foraminal narrowing at C4-5. 3. Mild facet joint arthropathy from C2-3 through C5-6.
== END 2024-12-08 06:40 | disposition home or self-care (01) ==
LOC: RAD 06:41
PROVIDERS: PCP Family Medicine; Visit Provider Orthopaedic Surgery
DX: M48.02 Spinal stenosis, cervical region (principal); M50.222 Other cervical disc displacement at C5-C6 level; M47.812 Spondylosis without myelopathy or radiculopathy, cervical region; M25.78 Osteophyte, vertebrae
CPT/HCPCS: 72141

== ENCOUNTER 2024-12-12 11:59 | Outpatient (CLI) | payer MEDICAID, SELFPAY ==
--- NOTE | 2024-12-12 12:40 | MM_ITS ---
WS: [id number] BILATERAL 3D TOMOSYNTHESIS DIGITAL SCREENING MAMMOGRAPHY WITH CAD CLINICAL INFORMATION: screening HISTORY: Screening mammogram. No current complaints. COMPARISON: 2018 TECHNIQUE: Bilateral CC and MLO views. FINDINGS: Scattered fibroglandular densities bilaterally. No suspicious focal mass, asymmetry, calcifications, or architectural distortion. No evidence of malignancy. Stable dense nodular breast tissue upper outer RIGHT breast MM/MM scr BI tomosynthesis [id number] IMPRESSION: DENSITY: There are scattered areas of fibroglandular density. BI-RADS: 1 - Negative. FOLLOW UP: 1 Year Follow-up Recommend return to annual screening mammography.
== END 2024-12-12 12:00 | disposition home or self-care (01) ==
LOC: RAD 12:01
PROVIDERS: PCP Family Medicine; Visit Provider Family Medicine
DX: Z12.31 Encounter for screening mammogram for malignant neoplasm of breast (principal); R92.323 Mammographic fibroglandular density, bilateral breasts; N63.11 Unspecified lump in the right breast, upper outer quadrant
CPT/HCPCS: 77063; 77067

== ENCOUNTER 2024-12-30 08:27 | Day surgery (SDC) | payer MEDICAID, SELFPAY ==
[2024-12-30 08:46] VITALS: BP 122/66; PULSE 59; RESP 18; TEMP 36.4; O2SAT 99; BMI 17.5
--- NOTE | 2024-12-30 10:06 | ANES.PREANE2 ---
Pre-Anesthetic Assessment Height/Weight: Height 1.6 m Weight 44.906 kg Temp Pulse Resp BP Pulse Ox O2 Del Method 97.5 F L 59 L 18 122/66 99 Room Air 12/30/24 08:46 12/30/24 08:46 12/30/24 08:46 12/30/24 08:46 12/30/24 08:46 12/30/24 08:46 Operation Date: 12/30/24 10:00 Proposed Procedures p EGD with Biopsy [id number] R63.4(Not Applicable) - Shahram Rivas MD Familial anesthetic complications: none Was Beta Birgit taken within 24 hours: N/A Was Clonidine taken within 24 hours: N/A Last intake: Intake Last Liquid Date 12/29/24 Last Liquid Time 21:00 Last Solid Date 12/29/24 Last Solid Time 09:00 Social No alcohol and No tobacco Exam alert and oriented x 3 Airway Submandibular: within normal limits Cervical ROM: within normal limits Mallampati: Class I Dentition: false History/ROS No significant history except as noted Pulmonary None reported CV/HEM Atrial Fibrillation None reported Hepatic None reported Metabolic None reported Musc/skel None reported Neuropsych None reported Anesthetic Plan ASA status: 2 Anesthesia: Anesthesia Evaluation and MAC Risk of > 500 ml blood loss (7ml/kg in children): No Medications/Allergies Home Medications ?Medication ?Instructions ?Recorded ?Confirmed ?Last Taken ?Type aspirin 81 mg tablet,delayed 81 mg PO DAILY #90 tabs 07/26/23 12/30/24 Unknown Rx release estradiol 1 mg tablet (Estrace) 1 mg PO DAILY #30 tabs 12/05/24 12/30/24 12/29/24 Rx Allergies Allergy/AdvReac Type Severity Reaction Status Date / Time No Known Allergies Allergy Verified 12/30/24 08:43 Current Medications Generic Name Dose Route Start Last Admin Trade Name Freq PRN Reason Stop Dose Admin Sodium Chloride 1,000 mls @ 15 mls/hr 12/30/24 08:32 12/30/24 09:02 Sodium Chloride 0.9% IV 12/31/24 08:31 15 mls/hr .Q24H PRN Administration COLONOSCOPY FLUIDS PFSH Anesthesia Medical History History of left heart catheterization Dr. Musa Arthritis of left shoulder Unintentional weight loss 40 pounds in 2 years Gall bladder disease Surgical History History of carpal tunnel release Bilaterally History of esophagogastroduodenoscopy (EGD) age 17-18 - dx with ulcers Hx laparoscopic cholecystectomy H/O hysterectomy with oophorectomy History of x 2 Family History Mother Psychiatric illness Father Stroke Social History Smoking and tobacco/nicotine status: former use of tobacco/nicotine Second hand smoke exposure: No Alcohol intake: never Substance/Drug Use: never Adopted: No Caregiver/support person: No Lives independently: Yes Household members: significant other Housing: House Marital status: / Number of children: 2 Highest education level completed: 11th Grade service: No Current occupational status: employed Data Anesthesia Cardiac Studies: Echocardiogram 11/30/22 Sestamibi Stress Test (Cardiology) 11/30/22
--- NOTE | 2024-12-30 10:11 | W.PM.OPSUD ---
Surgery/Procedure H&P Update DATE OF PROCEDURE: December 30, 2024 DATE H&P PERFORMED: 12/11/24 H&P UPDATE INFORMATION: I have reviewed H&P completed within last 30 days, I have examined patient prior to procedure and No changes to prior documentation PLANNED PROCEDURE: Operation Date: 12/30/24 10:00 Proposed Procedures p EGD with Biopsy [id number] R63.4(Not Applicable) - Shahram Rivas MD
[2024-12-30 10:26] VITALS: BP 94/51; PULSE 54; RESP 20; TEMP 36.1; O2SAT 99
--- NOTE | 2024-12-30 10:27 | ANE.PACU2 ---
Inpatient post-anesthesia follow up: Airway intact: Yes Vital signs: Temperature 97.5 F Pulse Rate 59 Respiratory Rate 18 Blood Pressure 122/66 Pulse Oximetry 99 Oxygen Delivery Me thod Room Air Oxygen Flow Rate Fraction of Inspir ed Oxygen Hydration adequate: Yes Nausea and vomiting: No Pain level: 1 Mental status: Baseline
[2024-12-30 10:36] VITALS: BP 110/51; PULSE 51; RESP 18; O2SAT 99
== END 2024-12-30 11:10 | disposition home or self-care (01) ==
PROVIDERS: PCP Family Medicine; Visit Provider Student in an Organized Health Care Education/Training Program
PROC: 0DJ08ZZ Inspection of Upper Intestinal Tract, Via Natural or Artificial Opening Endoscopic (ICD-10-PCS; principal; 2024-12-30 10:00)
DX: K29.50 Unspecified chronic gastritis without bleeding (principal); R63.4 Abnormal weight loss; R23.3 Spontaneous ecchymoses; I48.91 Unspecified atrial fibrillation; Z79.82 Long term (current) use of aspirin; Z87.891 Personal history of nicotine dependence
CPT/HCPCS: 43239; 88305; J2704; J7030

== ENCOUNTER → 2025-02-23 09:58 | Outpatient (BNVA) | payer MEDICAID, SELFPAY | PROVIDERS: PCP Family Medicine; Visit Provider Family Medicine | DX: L81.9 Disorder of pigmentation, unspecified (principal) | CPT/HCPCS: 88304 ==